=== PATIENT | female | born 1940 | race Caucasian/White ===

== ENCOUNTER 2020-01-30 12:23 | Emergency (ER) | payer MEDICARE ==
[2020-01-30 13:11] LABS: ABS Basophils 0.1 10^3/ul (0-0.2); ABS Eosinophils 0.1 10^3/ul (0-0.6); ABS Monocytes 0.7 10^3/ul (0-0.8); Eosinophil % 0.8 %; Hematocrit 34 % (35-47); Hemoglobin 11.4 g/dL (12.0-16.0); Lymphocyte % 14.5 %; Mean Corpuscular HGB Conc 34 g/dL (31-36); Mean Corpuscular Hemoglobin 31 pg (27-31); Mean Corpuscular Volume 93 fL (80-97); Mean Platelet Volume 8.3 fL (7.4-10.4); Platelet Count 304 10^3/uL (150-450); Red Blood Count 3.65 10^6 /uL (3.70-4.87); Red Cell Distribution Width 15 % (10-15); White Blood Count 6.8 10^3/uL (3.5-10.8)
[2020-01-30 13:29] LABS: ALT < 3 U/L (7-52); AST 7 U/L (13-39); Albumin 3.8 g/dL (3.2-5.2); Albumin/Globulin Ratio 1.7 (1-3); Alkaline Phosphatase 71 U/L (34-104); Anion Gap 2 mmol/L (2-11); BUN/Creatinine Ratio 18.3 (8-20); Blood Urea Nitrogen 13 mg/dL (6-24); CO2 Carbon Dioxide 29 mmol/L (22-32); Chloride 108 mmol/L (101-111); EGFR African American 96.3 (>60); EGFR Non-African American 79.6 (>60); Globulin 2.3 g/dL (2-4); Glucose 83 mg/dL (70-100); Potassium 4.3 mmol/L (3.5-5.0); Sodium 139 mmol/L (135-145); Total Protein 6.1 g/dL (6.4-8.9)
[2020-01-30 16:43] VITALS: BP 153/82
== END 2020-01-30 16:53 | disposition home or self-care (01) ==
LOC: ED 12:23

== ENCOUNTER 2021-08-24 09:29 | Observation (INO) ==
[2021-08-24] MEDS ORDERED: Lactated Ringers 1000 ml BAG 1,000 ML IV ONE (09:49)
[2021-08-24 10:07] LABS: ABS Eosinophils 0.1 10^3/ul (0-0.6); ABS Lymphocytes 0.5 10^3/ul (1.0-4.8); ABS Monocytes 0.6 10^3/ul (0-0.8); Hematocrit 40 % (35-47); Hemoglobin 13.3 g/dL (12.0-16.0); Lymphocyte % 6.2 %; Mean Corpuscular HGB Conc 33 g/dL (31-36); Mean Corpuscular Hemoglobin 32 pg (27-31); Mean Corpuscular Volume 96 fL (80-97); Mean Platelet Volume 8.4 fL (7.4-10.4); Platelet Count 305 10^3/uL (150-450); Red Cell Distribution Width 16 % (10-15); White Blood Count 7.3 10^3/uL (3.5-10.8)
[2021-08-24 10:23] LABS: INR 1.17 (0.86-1.15)
[2021-08-24 10:34] LABS: ALT < 3 U/L (7-52); AST 9 U/L (13-39); Albumin 3.9 g/dL (3.2-5.2); Albumin/Globulin Ratio 1.4 (1-3); Alkaline Phosphatase 102 U/L (35-149); Anion Gap 5 mmol/L (2-11); Blood Urea Nitrogen 13 mg/dL (6-24); CO2 Carbon Dioxide 31 mmol/L (22-32); Calcium 9.7 mg/dL (8.6-10.3); Chloride 106 mmol/L (101-111); Globulin 2.7 g/dL (2-4); Glucose 105 mg/dL (70-100); Magnesium 2.2 mg/dL (1.9-2.7); Potassium 4.3 mmol/L (3.5-5.0); Sodium 142 mmol/L (135-145); Total Protein 6.6 g/dL (6.4-8.9)
[2021-08-24 11:35] LABS: TSH Ultra Thyroid Stim Horm 2.03 mcIU/mL (0.34-5.60)
[2021-08-24 11:38] LABS: Urine Appearance Clear; Urine Bilirubin Negative (Negative); Urine Blood Negative (Negative); Urine Color Yellow; Urine Glucose Negative (Negative); Urine Ketones Trace (Negative); Urine Nitrite Negative (Negative); Urine Protein Negative (Negative); Urine Specific Gravity 1.008 (1.002-1.030); Urine Urobilinogen Negative (Negative)
[2021-08-24] MEDS ORDERED: Carbidopa/Levodop 25/100 MG TAB PO ONE (12:44)
[2021-08-24] MEDS ORDERED: Carbidopa/Levodop 25/100 MG TAB PO PRN (14:48)
[2021-08-24] MEDS ORDERED: NS 0.9% 1000 ml BAG 1,000 ML IV SCH (15:00)
[2021-08-24 15:25] LABS: Rapid COVID-19 Molecular Undetected (Undetected)
[2021-08-24 15:30] LABS: Lithium < 0.10 mmol/L (0.6-1.2)
[2021-08-24 15:55] LABS: Vitamin B12 793 pg/mL (180-914)
[2021-08-24] MEDS: CARBIDOPA LEVODOPA PO SCH (17:10)
[2021-08-24] MEDS: Senna TAB 8.6 mg TAB PO SCH (17:59)
[2021-08-24] MEDS: Carbidopa/Levodop 25/100 MG TAB PO SCH (22:09)
[2021-08-24] MEDS: CMCS:Dabigatran 150 mg CAP (NF) PO SCH (22:10)
[2021-08-25] MEDS: CARBIDOPA LEVODOPA PO SCH ×3 (00:18→15:14)
[2021-08-25 05:55] LABS: ABS Basophils 0.1 10^3/ul (0-0.2); ABS Eosinophils 0.2 10^3/ul (0-0.6); ABS Lymphocytes 0.6 10^3/ul (1.0-4.8); ABS Monocytes 0.6 10^3/ul (0-0.8); ABS Neutrophils 3.1 10^3/ul (1.5-7.7); Eosinophil % 3.6 %; Hematocrit 40 % (35-47); Hemoglobin 13.2 g/dL (12.0-16.0); Lymphocyte % 12.9 %; Mean Corpuscular HGB Conc 33 g/dL (31-36); Mean Corpuscular Hemoglobin 32 pg (27-31); Mean Corpuscular Volume 95 fL (80-97); Mean Platelet Volume 8.4 fL (7.4-10.4); Nucleated Red Blood Cells % 0.1; Platelet Count 293 10^3/uL (150-450); Red Blood Count 4.16 10^6 /uL (3.70-4.87); Red Cell Distribution Width 16 % (10-15); White Blood Count 4.5 10^3/uL (3.5-10.8)
[2021-08-25 06:24] LABS: Calcium 9.8 mg/dL (8.6-10.3); Potassium 3.7 mmol/L (3.5-5.0)
[2021-08-25] MEDS: Polyethylene Glycol 3350 17 GM PACKET PO SCH (08:20)
[2021-08-25] MEDS: Senna TAB 8.6 mg TAB PO SCH ×2 (08:20→15:32)
[2021-08-25] MEDS: Cholecalciferol (VIT D3) 1,000 unit TAB PO SCH (08:21)
[2021-08-25] MEDS: Carbidopa/Levodop 25/100 MG TAB PO SCH ×2 (08:21→19:44)
[2021-08-25] MEDS: CMCS:Dabigatran 150 mg CAP (NF) PO SCH ×2 (08:21→19:56)
[2021-08-25] MEDS: NF:Mirabegron 25 mg ER TAB (NF) PO SCH (08:23)
[2021-08-25] MEDS ORDERED: Potassium Chlor 20 meq TAB.ER PO ONE (08:30)
[2021-08-25] MEDS: LEVODOPA PO SCH ×2 (16:39→19:45)
[2021-08-25] MEDS: CARBIDOPA PO SCH ×2 (16:39→19:45)
[2021-08-26 07:34] VITALS: BP 129/55
[2021-08-26] MEDS: Cholecalciferol (VIT D3) 1,000 unit TAB PO SCH (08:23)
[2021-08-26] MEDS: Senna TAB 8.6 mg TAB PO SCH (08:23)
[2021-08-26] MEDS: LEVODOPA PO SCH (08:24)
[2021-08-26] MEDS: CARBIDOPA PO SCH (08:24)
[2021-08-26] MEDS: Carbidopa/Levodop 25/100 MG TAB PO SCH (08:25)
[2021-08-26] MEDS: NF:Mirabegron 25 mg ER TAB (NF) PO SCH (08:26)
[2021-08-26] MEDS: Polyethylene Glycol 3350 17 GM PACKET PO SCH (08:26)
== END 2021-08-26 11:30 | disposition home or self-care (01) ==
LOC: ED 09:29 → EDHOLD 09:29 → SUATTDRO 14:43 → MEDTELE 16:49
PROVIDERS: ADMIT Internal Medicine; ATTEND Internal Medicine

== ENCOUNTER 2022-09-30 20:05 | Inpatient (IN) ==
[2022-09-30] MEDS ORDERED: Ondansetron 4 mg VIAL 2 MG/ML 2 ml VIAL IV ONE (21:34)
[2022-09-30] MEDS ORDERED: Lactated Ringers 1000 ml BAG 1,000 ML IV ONE (21:34)
[2022-09-30 21:45] LABS: Hematocrit 40 % (35-47); Hemoglobin 12.7 g/dL (12.0-16.0); Mean Corpuscular HGB Conc 32 g/dL (31-36); Mean Corpuscular Hemoglobin 30 pg (27-31); Mean Corpuscular Volume 93 fL (80-97); Mean Platelet Volume 9.1 fL (7.4-10.4); Platelet Count 339 10^3/uL (150-450); Red Blood Count 4.28 10^6 /uL (3.70-4.87); Red Cell Distribution Width 19 % (10-15); White Blood Count 15.9 10^3/uL (3.5-10.8)
[2022-09-30 22:18] LABS: AST 7 U/L (13-39); Albumin 3.8 g/dL (3.2-5.2); Albumin/Globulin Ratio 1.9 (1-3); Alkaline Phosphatase 85 U/L (35-149); Anion Gap 9 mmol/L (2-11); Blood Urea Nitrogen 28 mg/dL (6-24); C Reactive Protein 20.47 mg/L (<8.01); CO2 Carbon Dioxide 28 mmol/L (22-32); Calcium 9.4 mg/dL (8.6-10.3); Chloride 100 mmol/L (101-111); Glucose 119 mg/dL (70-100); Lipase < 10 U/L (11.0-82.0); Potassium 4.1 mmol/L (3.5-5.0); Sodium 137 mmol/L (135-145); Total Protein 5.8 g/dL (6.4-8.9); eGFR CKD-EPI 91.2 (>60)
[2022-09-30 22:19] LABS: ALT < 3 U/L (7-52)
[2022-09-30] MEDS ORDERED: Iohexol 350 (CONTRAST) 500 ML MDV IV ONE (22:34)
[2022-09-30 22:52] LABS: ABS Basophils 0.1 10^3/ul (0-0.2); ABS Lymphocytes 0.2 10^3/ul (1.0-4.8); ABS Monocytes 0.8 10^3/ul (0-0.8); ABS Neutrophils 14.9 10^3/ul (1.5-7.7); Lymphocyte % 1.3 %
[2022-10-01 00:26] LABS: Lithium 0.18 mmol/L (0.6-1.2)
[2022-10-01] MEDS ORDERED: CARBIDOPA LEVODOPA PO SCH (01:30)
[2022-10-01 01:48] LABS: Urine Appearance Cloudy; Urine Bilirubin Negative (Negative); Urine Blood Negative (Negative); Urine Color Yellow; Urine Glucose Negative (Negative); Urine Ketones 1+ (Negative); Urine Nitrite Positive (Negative); Urine Protein 1+(30 mg/dL) (Negative); Urine Urobilinogen Negative (Negative)
[2022-10-01 02:04] LABS: Urine Bacteria 2+ (Absent); Urine Red Blood Cell Absent (Absent); Urine Squamous Epithelial Cell Present (Absent); Urine White Blood Cell 2+(11-20/hpf) (Absent)
[2022-10-01 02:06] LABS: Urine Specific Gravity > 1.060 (1.002-1.030)
[2022-10-01] MEDS: Enoxaparin 40 MG/0.4 ML SYR SUBCUT SCH (05:52)
[2022-10-01 06:00] LABS: ABS Basophils 0.1 10^3/ul (0-0.2); ABS Lymphocytes 0.5 10^3/ul (1.0-4.8); ABS Monocytes 0.8 10^3/ul (0-0.8); ABS Neutrophils 9.4 10^3/ul (1.5-7.7); Eosinophil % 0.3 %; Hematocrit 33 % (35-47); Hemoglobin 10.7 g/dL (12.0-16.0); Lymphocyte % 4.8 %; Mean Corpuscular HGB Conc 32 g/dL (31-36); Mean Corpuscular Hemoglobin 30 pg (27-31); Mean Corpuscular Volume 94 fL (80-97); Mean Platelet Volume 8.9 fL (7.4-10.4); Platelet Count 273 10^3/uL (150-450); Red Blood Count 3.54 10^6 /uL (3.70-4.87); Red Cell Distribution Width 19 % (10-15); White Blood Count 10.8 10^3/uL (3.5-10.8)
[2022-10-01 06:57] LABS: Blood Urea Nitrogen 22 mg/dL (6-24); CO2 Carbon Dioxide 28 mmol/L (22-32); Calcium 8.3 mg/dL (8.6-10.3); Chloride 104 mmol/L (101-111); Glucose 90 mg/dL (70-100); Sodium 139 mmol/L (135-145); eGFR CKD-EPI 98.8 (>60)
[2022-10-01 07:12] LABS: Anion Gap 7 mmol/L (2-11)
[2022-10-01] MEDS: Lactated Ringers 1000 ml BAG 1,000 ML IV SCH ×2 (09:02→20:43)
[2022-10-01 09:16] LABS: Potassium, Whole Blood 3.9 mmol/L (3.4-4.5)
[2022-10-01] MEDS: Carbidopa/Levodop 25/100 MG TAB PO SCH ×2 (10:27→15:11)
[2022-10-01] MEDS: cefTRIAXone 1 gm/50 mL D5W 1 GM/50 ML BAG IV SCH (15:28)
[2022-10-01] MEDS: Carbidopa/Levodop CR 50/200 TAB.CR PO SCH (20:36)
[2022-10-02] MEDS: Lactated Ringers 1000 ml BAG 1,000 ML IV SCH ×3 (04:41→16:51)
[2022-10-02] MEDS: Enoxaparin 40 MG/0.4 ML SYR SUBCUT SCH (05:04)
[2022-10-02 06:25] LABS: ABS Basophils 0.1 10^3/ul (0-0.2); ABS Eosinophils 0.1 10^3/ul (0-0.6); ABS Lymphocytes 0.4 10^3/ul (1.0-4.8); ABS Monocytes 0.7 10^3/ul (0-0.8); ABS Neutrophils 6.4 10^3/ul (1.5-7.7); Hematocrit 32 % (35-47); Hemoglobin 10.3 g/dL (12.0-16.0); Lymphocyte % 4.7 %; Mean Corpuscular HGB Conc 33 g/dL (31-36); Mean Corpuscular Hemoglobin 31 pg (27-31); Mean Corpuscular Volume 94 fL (80-97); Mean Platelet Volume 8.9 fL (7.4-10.4); Platelet Count 278 10^3/uL (150-450); Red Blood Count 3.37 10^6 /uL (3.70-4.87); Red Cell Distribution Width 19 % (10-15); White Blood Count 7.6 10^3/uL (3.5-10.8)
[2022-10-02 07:04] LABS: Calcium 8.5 mg/dL (8.6-10.3); Potassium 3.7 mmol/L (3.5-5.0); eGFR CKD-EPI 98.8 (>60)
[2022-10-02] MEDS ORDERED: LEVODOPA PO SCH (08:00)
[2022-10-02] MEDS ORDERED: CARBIDOPA LEVODOPA PO SCH (08:00)
[2022-10-02] MEDS ORDERED: CARBIDOPA PO SCH (08:00)
[2022-10-02] MEDS: Acetaminophen IV 1 GM/100ML 1,000 MG/100 ML BAG IV PRN (08:37)
[2022-10-02] MEDS: Carbidopa/Levodop 25/100 MG TAB PO SCH ×3 (10:17→20:10)
[2022-10-02] MEDS: LEVODOPA PO SCH ×2 (14:02→16:25)
[2022-10-02] MEDS: CARBIDOPA PO SCH ×2 (14:02→16:25)
[2022-10-02] MEDS: cefTRIAXone 1 gm/50 mL D5W 1 GM/50 ML BAG IV SCH (15:47)
[2022-10-02] MEDS ORDERED: Ondansetron 4 mg VIAL 2 MG/ML 2 ml VIAL IV PRN (17:23)
[2022-10-02] MEDS ORDERED: Carbidopa/Levodop CR 50/200 TAB.CR PO SCH (21:00)
[2022-10-02] MEDS: Carbidopa/Levodop CR 50/200 TAB.CR PO SCH (22:11)
[2022-10-03] MEDS: Lactated Ringers 1000 ml BAG 1,000 ML IV SCH ×2 (00:57→10:03)
[2022-10-03] MEDS: Enoxaparin 40 MG/0.4 ML SYR SUBCUT SCH (06:07)
[2022-10-03] MEDS: CARBIDOPA PO SCH ×3 (07:55→16:08)
[2022-10-03] MEDS: LEVODOPA PO SCH ×3 (07:55→16:08)
[2022-10-03] MEDS: Carbidopa/Levodop 25/100 MG TAB PO SCH ×3 (10:04→17:47)
[2022-10-03] MEDS ORDERED: Lactated Ringers 1000 ml BAG 500 ML IV ONE (12:31)
[2022-10-03 12:55] LABS: PCO2 Arterial 37 mmHg (35-45); PO2 Arterial 70 mmHg (80-100)
[2022-10-03 12:58] LABS: Hematocrit 35 % (35-47); Hemoglobin 11.2 g/dL (12.0-16.0); Mean Corpuscular HGB Conc 32 g/dL (31-36); Mean Corpuscular Hemoglobin 30 pg (27-31); Mean Corpuscular Volume 94 fL (80-97); Mean Platelet Volume 9.7 fL (7.4-10.4); Platelet Count 285 10^3/uL (150-450); Red Blood Count 3.74 10^6 /uL (3.70-4.87); Red Cell Distribution Width 19 % (10-15); White Blood Count 8.1 10^3/uL (3.5-10.8)
[2022-10-03 13:19] LABS: AST 5 U/L (13-39); Albumin 3.2 g/dL (3.2-5.2); Albumin/Globulin Ratio 1.9 (1-3); Alkaline Phosphatase 72 U/L (35-149); Anion Gap 13 mmol/L (2-11); Blood Urea Nitrogen 7 mg/dL (6-24); CO2 Carbon Dioxide 23 mmol/L (22-32); Calcium 8.5 mg/dL (8.6-10.3); Chloride 102 mmol/L (101-111); Globulin 1.7 g/dL (2-4); Glucose 77 mg/dL (70-100); Potassium 3.4 mmol/L (3.5-5.0); Sodium 138 mmol/L (135-145); Total Protein 4.9 g/dL (6.4-8.9); eGFR CKD-EPI 101.3 (>60)
[2022-10-03 13:24] LABS: ALT < 3 U/L (7-52)
[2022-10-03 13:32] LABS: ABS Lymphocytes 0.2 10^3/ul (1.0-4.8); ABS Monocytes 0.6 10^3/ul (0-0.8); ABS Neutrophils 7.1 10^3/ul (1.5-7.7); Eosinophil % 0.3 %; Lymphocyte % 2.8 %
[2022-10-03 14:33] LABS: High Sensitivity Troponin 1 Hr 17 pg/mL (<15)
[2022-10-03] MEDS: cefTRIAXone 1 gm/50 mL D5W 1 GM/50 ML BAG IV SCH (15:18)
[2022-10-03] MEDS ORDERED: Lactated Ringers 1000 ml BAG 1,000 ML IV SCH (21:00)
[2022-10-03] MEDS: Carbidopa/Levodop CR 50/200 TAB.CR PO SCH (22:04)
[2022-10-04 06:56] LABS: Calcium 7.9 mg/dL (8.6-10.3); Magnesium 1.7 mg/dL (1.9-2.7); Potassium 3.7 mmol/L (3.5-5.0)
[2022-10-04] MEDS ORDERED: Magnesium Sulf 4 GM/100 ML IV 4,000 MG/100 ML BAG IVPB ONE (07:26)
[2022-10-04] MEDS: LEVODOPA PO SCH ×3 (09:41→16:13)
[2022-10-04] MEDS: CARBIDOPA PO SCH ×3 (09:41→16:13)
[2022-10-04] MEDS ORDERED: Diatrizoate Meg/Sod(CONTRAST) 30 ML ORAL.SOLN PO ONE (10:25)
[2022-10-04] MEDS: Carbidopa/Levodop 25/100 MG TAB PO SCH ×3 (10:34→18:15)
[2022-10-04] MEDS: Acetaminophen IV 1 GM/100ML 1,000 MG/100 ML BAG IV PRN (16:29)
[2022-10-04] MEDS: Carbidopa/Levodop CR 50/200 TAB.CR PO SCH ×2 (22:47→23:09)
[2022-10-05 06:12] LABS: Hematocrit 32 % (35-47); Hemoglobin 10.8 g/dL (12.0-16.0); Mean Corpuscular HGB Conc 34 g/dL (31-36); Mean Corpuscular Hemoglobin 32 pg (27-31); Mean Corpuscular Volume 94 fL (80-97); Platelet Count 295 10^3/uL (150-450); Red Blood Count 3.42 10^6 /uL (3.70-4.87); Red Cell Distribution Width 19 % (10-15); White Blood Count 6.6 10^3/uL (3.5-10.8)
[2022-10-05 06:47] LABS: Calcium 7.8 mg/dL (8.6-10.3); Potassium 3.2 mmol/L (3.5-5.0)
[2022-10-05 07:04] LABS: ABS Eosinophils 0.1 10^3/ul (0-0.6); ABS Lymphocytes 0.5 10^3/ul (1.0-4.8); ABS Monocytes 0.8 10^3/ul (0-0.8); ABS Neutrophils 5.3 10^3/ul (1.5-7.7); Eosinophil % 0.8 %; Lymphocyte % 7.2 %; Nucleated Red Blood Cells % 0.1
[2022-10-05] MEDS: CARBIDOPA PO SCH ×3 (08:13→16:19)
[2022-10-05] MEDS: LEVODOPA PO SCH ×3 (08:13→16:19)
[2022-10-05] MEDS: KCL 20 MEQ/100 ML IVPREMIX 20 MEQ/100 ML BAG IV SCH ×2 (08:14→10:23)
[2022-10-05] MEDS: Carbidopa/Levodop 25/100 MG TAB PO SCH ×3 (10:19→18:15)
[2022-10-05] MEDS: Carbidopa/Levodop CR 50/200 TAB.CR PO SCH (20:21)
[2022-10-06 05:57] LABS: ABS Eosinophils 0.1 10^3/ul (0-0.6); ABS Lymphocytes 0.5 10^3/ul (1.0-4.8); ABS Monocytes 0.7 10^3/ul (0-0.8); ABS Neutrophils 4.8 10^3/ul (1.5-7.7); Eosinophil % 1.9 %; Hematocrit 31 % (35-47); Lymphocyte % 8.6 %; Mean Corpuscular HGB Conc 33 g/dL (31-36); Mean Corpuscular Hemoglobin 31 pg (27-31); Mean Corpuscular Volume 94 fL (80-97); Mean Platelet Volume 8.5 fL (7.4-10.4); Platelet Count 259 10^3/uL (150-450); Red Blood Count 3.26 10^6 /uL (3.70-4.87); Red Cell Distribution Width 18 % (10-15); White Blood Count 6.2 10^3/uL (3.5-10.8)
[2022-10-06 06:34] LABS: Calcium 7.5 mg/dL (8.6-10.3); Potassium 3.1 mmol/L (3.5-5.0)
[2022-10-06 06:39] LABS: eGFR CKD-EPI 101.9 (>60)
[2022-10-06] MEDS: LEVODOPA PO SCH ×3 (07:59→16:24)
[2022-10-06] MEDS: CARBIDOPA PO SCH ×3 (07:59→16:24)
[2022-10-06 09:18] LABS: Magnesium 1.8 mg/dL (1.9-2.7)
[2022-10-06] MEDS ORDERED: Magnesium Sulfate 2 gm BAG 2 GM/50 ML BAG IVPB ONE (09:48)
[2022-10-06] MEDS: KCL 20 MEQ/100 ML IVPREMIX 20 MEQ/100 ML BAG IV SCH ×2 (10:03→13:32)
[2022-10-06] MEDS: Carbidopa/Levodop 25/100 MG TAB PO SCH ×2 (10:03→14:03)
[2022-10-06 16:12] VITALS: BP 118/67
== END 2022-10-06 17:30 | DRG 389 ==
LOC: ED 20:05 → SUATTDRO 23:45 → EDHOLD 23:45 → MED 10-01 18:05
PROVIDERS: ADMIT Student in an Organized Health Care Education/Training Program; ATTEND Internal Medicine